=== PATIENT | female | born 1985 | race Caucasian/White ===

== ENCOUNTER 2017-04-20 12:20 | Emergency (ER) | payer OTHER ==
[~2017-04-20] VITALS: Ht 167.6 cm; Wt 75.3 kg
--- NOTE | 2017-04-20 13:45 | PD ---
HPI Chief Complaint Contraction pain Date Seen: Apr 20, 2017 Time Seen: 13:22 Travel History International Travel<30 Days: No Contact w/Intl Traveler<30Days: No Known Affected Area: No History of Present Illness HPI Patient is a 31-year-old white female at 39 weeks 6 days due tomorrow who presents complaining contractions after having had her membranes stripped in the office yesterday she has has no bleeding or leakage of fluid. She was checked in the office when her membranes were stripped she was 3 cm then. heart rate tracing is reactive and she is tesfaye at this time every 2 -3 minutes Weeks Gestation: 39 Para: 0 : 2 Miscarriage: 1 History Obstetric History Obstetric History 1 early loss Social History Alcohol Use: No Tobacco Use: No Substance Abuse: No Review of Systems General / Constitutional: No: Fever, Weight Gain, Chills, Other Eyes: No: Diploplia, Blurred Vision, Visual changes, Pain, Photophobia HENT: No: Headaches, Vertigo, Lightheadedness Cardiovascular: No: Irregular Rhythm, Chest Pain or Discomfort, Palpitations, Tachycardia, Syncope, Varicosities, Edema, Cyanosis Respiratory: No: Cough, Short of Breath, Other Gastrointestinal: Abdominal Pain, No: Nausea, Vomiting, Diarrhea Genitourinary: No: Decreased Urinary Output, Oliguria Musculoskeletal: No: Limited ROM, Weakness, Cramping, Edema, Pain Skin: No Rash, No Itching, No Dryness, No Lumps, No Change in Pigmentation, No Change in Nails, No Alopecia, No Lesions Neurologic: No: Weakness, Dizziness, Syncope, Focal Abnormalities, Coordination Problem, Headache, Slurred Speech, Seizures Psychiatric: No: Depression, Suicidal Ideations, Homicidal Ideation Endocrine: No: Heat Intolerance, Cold Intolerance, Polydipsia, Polyuria, Other Physical Exam Narrative GENERAL: Well-nourished, well-developed patient. SKIN: Warm and dry. HEAD: Normocephalic and atraumatic. EYES: No scleral icterus. No injection or drainage. ENT: No nasal drainage noted. Mucous membranes pink. Airway patent. NECK: Supple, trachea midline. No JVD. CARDIOVASCULAR: Regular rate and rhythm without murmurs, gallops, or rubs. RESPIRATORY: Breath sounds equal bilaterally. No accessory muscle use. BREASTS: Bilateral exam showed no masses , no retractions, no nipple discharge. ABDOMEN/GI: Abdomen soft, non-tender, bowel sounds present, no rebound, no guarding Gravid to [38-] weeks size Fundal Height: [38-] GENITOURINARY: External Genitalia: intact and normal in appearance BUS glands: [-] Cervix: [-post] Dilatation: [-3] Effacement: [-50] Station: [-3 Presentation: [-vtx] Membranes: [intact ] Uterine Contractions: [q 2-3 min-] FHT's: Category: [1-] Baseline: [-133] Reactive: [R-] Variability: [mod-] Decels: [none-] EXTREMITIES: No cyanosis or edema. BACK: Nontender without obvious deformity. No CVA tenderness. NEUROLOGICAL: Awake and alert. Motor and sensory grossly within normal limits. Five out of 5 muscle strength in all muscle groups. Normal speech. MDM Interpretation(s) Patient's 31-year-old white female at 39-[address] Barker care presents with contractions. The cervix is unchanged from yesterday's exam. heart rate tracings reactive, contractions are seen on the monitor. Patient is tolerating them well Plan Plan discharge home to await further contraction strength and activity, bleeding or leakage of fluid. Diagnosis Diagnosis: Primary Impression: Uterine contractions during Additional Impression: 39 weeks gestation of Disposition: 01 DISCHARGE HOME Condition: Stable Jordi Bang II, MD Apr 20, 2017 13:45
== END 2017-04-20 14:07 | disposition home or self-care (01) ==
LOC: HOBED 12:20
DX: O62.9 Abnormality of forces of labor, unspecified (principal); Z3A.39 39 weeks gestation of pregnancy
CPT/HCPCS: 59025

== ENCOUNTER 2017-04-27 06:10 | Inpatient (IN) | payer OTHER ==
[2017-04-27] VITALS (43 sets, daily range): BP systolic 107–162; BP diastolic 57–93; PULSE 57–108; RESP 18; TEMP 97.6–98.8; O2SAT 98
[~2017-04-27] VITALS: Ht 167.6 cm; Wt 78.0 kg
[2017-04-27] MEDS ORDERED: LACTATED RINGER'S 1000 ML INJ 1,000 ML IV PRN (07:24)
[2017-04-27] MEDS ORDERED: LIDOCAINE HCL 1% 50 ML VIAL I-DERMAL PRN (07:30)
[2017-04-27] MEDS ORDERED: ONDANSETRON HCL 4 MG/2 ML VIAL IV PUSH PRN ×2 (07:30→22:45)
[2017-04-27] MEDS ORDERED: SODIUM CHLORID 0.9% 500 ML INJ 500 ML IV PRN (07:30)
[2017-04-27] MEDS ORDERED: CITRIC ACID-SODIUM CITRATE LIQ 30 ML UDC PO SCH (07:30)
[2017-04-27] MEDS ORDERED: LIDOCAINE HCL 1% 50 ML VIAL INFIL PRN (07:30)
[2017-04-27] MEDS ORDERED: OXYTOCIN 30 UNITS-500ML PREMIX 500 ML IV PRN (07:30)
[2017-04-27] MEDS ORDERED: MINERAL OIL 10 ML VIAL TOPICAL PRN (07:30)
[2017-04-27] MEDS ORDERED: OXYTOCIN 30 UNITS-500ML PREMIX 500 ML IV ONE ×2 (07:30→22:45)
[2017-04-27 07:39] LABS: AUTOMATED NEUTROPHIL # 7.9 TH/MM3 (1.8-7.7); BASOPHIL # 0.1 TH/MM3 (0-0.2); BASOPHIL % 0.5 % (0.0-2.0); EOSINOPHIL # 0.1 TH/MM3 (0-0.4); EOSINOPHIL % 0.6 % (0.0-4.0); HEMATOCRIT 35.9 % (35.0-46.0); HEMOGLOBIN 12.5 GM/DL (11.6-15.3); LYMPH % 20.2 % (9.0-44.0); LYMPHOCYTE # 2.3 TH/MM3 (1.0-4.8); MEAN CELL VOLUME 91.3 FL (80.0-100.0); MEAN CORPUSCULAR HEMOGLOBIN 31.7 PG (27.0-34.0); MEAN CORPUSCULAR HGB CONC 34.7 % (32.0-36.0); MEAN PLATELET VOLUME 8.7 FL (7.0-11.0); MONO % 8.8 % (0.0-8.0); NEUT % 69.9 % (16.0-70.0); PLATELET COUNT 233 TH/MM3 (150-450); RED BLOOD COUNT 3.93 MIL/MM3 (4.00-5.30); RED CELL DISTRIBUTION WIDTH 14.7 % (11.6-17.2); WHITE BLOOD COUNT 11.4 TH/MM3 (4.0-11.0)
[2017-04-27] MEDS ORDERED: SODIUM CHLOR 0.9% 1000 ML INJ 1,000 ML IV PRN (07:44)
[2017-04-27 07:52] LABS: BACTERIA, URINE OCC /hpf; BILIRUBIN, URINE NEG (NEG); BLOOD, URINE NEG (NEG); GLUCOSE,URINE NEG (NEG); KETONE, URINE NEG (NEG); MUCUS URINE FEW /lpf (OCC); NITRITE,URINE NEG (NEG); SQUAMOUS EPITHELIAL CELL URINE 9 /hpf (0-5); URINE COLOR YELLOW (YELLW/STRAW); URINE LEUKOCYTE ESTERASE MOD (NEG)
[2017-04-27] MEDS: LACTATED RINGER'S 1000 ML INJ 1,000 ML IV SCH ×3 (08:05→19:17)
--- NOTE | 2017-04-27 08:06 | MH ---
cc: Jimmy Barker MD DATE OF ADMISSION: 04/27/2017 HISTORY OF PRESENT ILLNESS: The patient is a 31-year-old female, 2, para 0. Patient's estimated date of confinement is 04/21/2017. The patient is approximately 40 weeks' and 5 days' gestation. Uncomplicated course. The patient is scheduled for induction of labor at 40 and 6/7 weeks' gestation. PAST MEDICAL HISTORY: THE PATIENT IS ALLERGIC TO AMOXICILLIN, PENICILLIN, SEPTRA, AND CECLOR. She has a history of herpes simplex. She is currently on Valtrex 500 mg a day. Patient denies any other systemic or chronic disease. PAST SURGICAL HISTORY: Includes dilatation and curettage in 2015 for early missed . FAMILY HISTORY: Noncontributory. OBSTETRICAL HISTORY: The patient group B strep negative. One hour Glucola was normal. Genetic testing is normal. The patient's blood type is A positive. SOCIAL HISTORY: Previous smoker, quit prior to conception. Denies alcohol or illicit drug use. PHYSICAL EXAMINATION: GENERAL: The patient is a well-appearing female in no acute distress. VITAL SIGNS: Stable. Blood pressure is 128/88, pulse and respiratory rate are normal. heart tones are in the 140s. NECK: Shows no adenopathy or thyromegaly. Neck is supple. Full range of motion. HEENT: Pupils are equally round and reactive to light. There is no discoloration of her sclerae. LUNGS: Clear in all ramírez. CARDIOVASCULAR: Regular rate and rhythm. ABDOMEN: Gravid, full-term, 41 weeks' gestation. PELVIC: Cervix is 60% effaced, 2-3 cm, easily stretchable, -1 to -2 station, vertex intact. Cervix is soft and midposition. EXTREMITIES: Symmetrical full range of motion. There is no cyanosis, clubbing, or edema. NEUROLOGIC: Grossly intact, nonfocal. ASSESSMENT: The patient normal, healthy intrauterine gestation at 40 weeks and 6/7, for induction of labor, inducible, favorable cervix. Patient's group B strep status is negative. MD JOLLY Perla/SB , 01:27 PM , 01:47 PM
[2017-04-27] MEDS ORDERED: PROPOFOL 200 MG/20 ML AMP IV ONE (12:00)
[2017-04-27] MEDS ORDERED: ONDANSETRON HCL 4 MG/2 ML VIAL IV ONE (12:00)
[2017-04-27] MEDS ORDERED: LACTATED RINGER'S 1000 ML INJ 2,000 ML IV ONE (12:00)
[2017-04-27] MEDS ORDERED: LIDOCAINE 2%/EPINEPHrine PF 1:200,000 20ML SDV OTHER ONE (12:00)
[2017-04-27] MEDS ORDERED: OXYTOCIN 10 UNIT/ML AMP IV ONE (12:00)
[2017-04-27] MEDS ORDERED: ePHEDrine/NS 25 MG/5 ML SYRINGE ONE (13:34)
[2017-04-27] MEDS ORDERED: fentaNYL 2MCG-BUPIV 0.125% INJ 100 ML ONE (13:34)
[2017-04-27] MEDS ORDERED: NO SYSTEM NARCOTICS PRN (14:15)
[2017-04-27] MEDS ORDERED: ePHEDrine/NS 25 MG/5 ML SYRINGE IV PUSH PRN (14:15)
[2017-04-27] MEDS ORDERED: DO NOT ADMINISTER ANTICOAGULANTS PRN (14:15)
[2017-04-27] MEDS ORDERED: fentaNYL 2MCG-BUPIV 0.125% 100 ML EPIDURAL SCH (14:15)
[2017-04-27] MEDS ORDERED: ACETAMINOPHEN 325 MG TAB PO ONE (17:45)
[2017-04-27] MEDS ORDERED: MORPHINE SULFATE PF 5 MG/10 ML VIAL ONE (22:41)
[2017-04-27] MEDS ORDERED: ACETAMINOPHEN 325 MG TAB PO PRN (22:45)
[2017-04-27] MEDS ORDERED: SODIUM CHLORIDE 0.9% FLUSH 10 ML FLUSH IV FLUSH PRN (22:45)
[2017-04-27] MEDS ORDERED: KETOROLAC TROMETHAMINE 60 MG/2 ML (IM) VIAL IM PRN (22:45)
[2017-04-27] MEDS ORDERED: SODIUM CHLORIDE 0.9% FLUSH 10 ML FLUSH IV FLUSH SCH (22:45)
[2017-04-27] MEDS ORDERED: CLINDAMYCIN PHOS 600 MG/4 ML VIAL ONE (22:51)
[2017-04-27] MEDS ORDERED: CLINDAMYCIN INJ 600 MG in SODIUM CHLORIDE 0.9% INJ 100 ML IV SCH (23:00)
--- NOTE | 2017-04-27 23:47 | PD.OB.DELI ---
Procedure Note Section Procedure Performed by Jimmy Barker Procedure: Primary Low Transverse Sec Indication for delivery: Nonreassuring heart tracing, malposition Informed consent obtained: For anesthesia, For procedure Confirmed correct: Patient, Procedure, Site, Time-out taken Anesthesia: Epidural Medication prior to procedure: As documented in eMAR Monitoring during procedure: Blood pressure monitoring, telemetry monitor, doppler, Pulse oximetry Urinary catheter: Inserted using sterile technique, To dependent drainage Sterile preparation: Duraprep, In usual fashion Position: Supine with wedge to right side, Supine with safety belt applied Operative Features Skin Incision: Pfannenstiel Uterine Incision: Low transverse w/knife / scissors Membranes Ruptured: Previously Presentation: Occiput posterior Delivery date: Apr 27, 2017 Delivery time: 23:09 Infant: Female One Minute : 2 Five Minute : 9 Weight: 7/14 Status of : Viable (ABG cord gas pH=7.29) Medications: Antibiotics, Oxytocin Estimated blood loss: 650cc Procedure tolerated: Well Maternal Condition: Stable Condition: Stable Jimmy Barker MD Apr 27, 2017 23:47
[2017-04-28] VITALS (9 sets, daily range): BP systolic 115–141; BP diastolic 56–97; PULSE 72–92; RESP 16–18; TEMP 97.8–99.5; O2SAT 97–99
[2017-04-28] MEDS ORDERED: EPIDURAL-DIPHENHYDRAMINE HCL 50 MG/ML VIAL IV PUSH PRN (00:15)
[2017-04-28] MEDS ORDERED: EPIDURAL-DIPHENHYDRAMINE HCL 50 MG CAP PO PRN (00:15)
[2017-04-28] MEDS ORDERED: EPIDURAL-DO NOT ADMINISTER ANTICOAGULANTS PRN (00:15)
[2017-04-28] MEDS ORDERED: EPIDURAL-NALOXONE HCL 0.4 MG/ML AMP IV PUSH PRN (00:15)
[2017-04-28] MEDS ORDERED: EPIDURAL-NO SYSTEMIC NARCOTICS PRN (00:15)
[2017-04-28] MEDS ORDERED: LACTATED RINGER'S 1000 ML INJ 1,000 ML IV SCH (03:31)
[2017-04-28] MEDS: CLINDAMYCIN INJ 600 MG in SODIUM CHLORIDE 0.9% INJ 100 ML IV SCH ×2 (03:49→11:07)
[2017-04-28 06:03] LABS: AUTOMATED NEUTROPHIL # 13.3 TH/MM3 (1.8-7.7); BASOPHIL % 0.1 % (0.0-2.0); HEMATOCRIT 29.2 % (35.0-46.0); LYMPH % 6.6 % (9.0-44.0); MEAN CELL VOLUME 91.9 FL (80.0-100.0); MEAN CORPUSCULAR HEMOGLOBIN 31.6 PG (27.0-34.0); MEAN CORPUSCULAR HGB CONC 34.4 % (32.0-36.0); MEAN PLATELET VOLUME 8.8 FL (7.0-11.0); MONO % 7.1 % (0.0-8.0); MONOCYTE # 1.1 TH/MM3 (0-0.9); NEUT % 86.2 % (16.0-70.0); PLATELET COUNT 186 TH/MM3 (150-450); RED BLOOD COUNT 3.17 MIL/MM3 (4.00-5.30); RED CELL DISTRIBUTION WIDTH 14.5 % (11.6-17.2); WHITE BLOOD COUNT 15.5 TH/MM3 (4.0-11.0)
[2017-04-28] MEDS ORDERED: OXYTOCIN 30 UNITS-500ML PREMIX 500 ML IV PRN (08:45)
--- NOTE | 2017-04-28 09:05 | HHI.OB ---
Subjective Post Operative Day: 1 Objective Vitals/I&O Vital Signs Date Time Temp Pulse Resp B/P (MAP) Pulse Ox O2 Delivery O2 Flow Rate FiO2 04/28/17 01:35 97.8 82 17 141/97 (112) 04/28/17 00:54 79 16 133/68 (89) 04/28/17 00:54 99 04/28/17 00:43 97 04/28/17 00:43 84 16 132/73 (92) 04/28/17 00:27 124/70 (88) 04/28/17 00:27 91 18 98 04/28/17 00:20 90 17 128/65 (86) 99 04/28/17 00:05 98 04/28/17 00:05 98.5 04/28/17 00:05 92 18 115/56 (75) 04/27/17 23:50 98.5 89 18 111/57 (75) 98 04/27/17 22:27 91 134/87 (103) 04/27/17 20:45 98.1 04/27/17 19:45 18 04/27/17 19:30 75 131/84 (100) 04/27/17 19:08 108 162/75 (104) 04/27/17 19:00 98.4 18 04/27/17 17:33 18 04/27/17 17:33 74 124/73 (90) 04/27/17 17:33 97.7 04/27/17 16:10 97.8 90 18 108/74 (85) 04/27/17 15:30 72 115/66 (82) 04/27/17 15:25 77 04/27/17 15:20 95 04/27/17 15:15 76 04/27/17 15:10 89 04/27/17 15:05 89 04/27/17 15:05 98 119/73 (88) 04/27/17 15:00 71 04/27/17 15:00 107/77 (87) 04/27/17 15:00 85 04/27/17 14:55 79 125/81 (96) 04/27/17 14:55 86 04/27/17 14:50 77 04/27/17 14:50 66 115/76 (89) 04/27/17 14:45 81 119/74 (89) 04/27/17 14:45 62 04/27/17 14:40 69 04/27/17 14:40 76 123/75 (91) 04/27/17 14:35 96 125/80 (95) 04/27/17 14:35 66 04/27/17 14:30 71 118/72 (87) 04/27/17 14:30 72 04/27/17 14:25 80 04/27/17 14:25 121/80 (94) 04/27/17 14:25 65 04/27/17 14:20 129/77 (94) 04/27/17 14:20 71 04/27/17 14:20 70 04/27/17 14:15 73 04/27/17 14:15 71 124/73 (90) 04/27/17 14:10 72 04/27/17 14:10 69 129/86 (100) 04/27/17 14:05 68 129/77 (94) 04/27/17 14:05 68 04/27/17 14:04 97.6 18 04/27/17 14:00 65 130/81 (97) 04/27/17 14:00 64 04/27/17 13:55 89 149/84 (105) 04/27/17 13:55 75 04/27/17 13:53 81 126/92 (103) 04/27/17 13:52 90 129/66 (87) 04/27/17 13:50 73 04/27/17 13:48 67 137/93 (108) 04/27/17 12:56 62 117/81 (93) 04/27/17 12:56 98.2 18 04/27/17 11:33 61 133/79 (97) 04/27/17 10:51 63 124/82 (96) 04/27/17 10:50 98.8 18 04/27/17 10:03 68 131/75 (93) 04/27/17 09:27 62 18 121/85 (97) 04/27/17 09:26 97.8 Result Diagram: 04/28/17 0517 Objective Remarks GENERAL: Well-nourished, well-developed patient. CARDIOVASCULAR: Regular rate and rhythm without murmurs, gallops, or rubs. RESPIRATORY: Breath sounds equal bilaterally. No accessory muscle use. ABDOMEN/GI: Abdomen soft, non-tender, bowel sounds present. Incision: dressing Clean, dry and intact. Fundus: Firm, non-tender at umbilicus. GENITOURINARY: Light to moderate bleeding. EXTREMITIES: No cyanosis or edema, non-tender, without signs of DVT. Medications and IVs Current Medications Medications (Trade) Dose Ordered Sig/Christiano Route Start Time Stop Time Status Last Admin Lactated Ringer's 1,000 ml @ 100 mls/hr Q10H IV 04/28/17 03:31 04/28/17 23:30 Oxytocin 500 ml @ 100 mls/hr UNSCH X1 PRN IV 04/28/17 08:45 04/29/17 08:44 (NS Flush) 2 ml BID IV FLUSH 04/27/17 22:45 (NS Flush) 2 ml UNSCH PRN IV FLUSH 04/27/17 22:45 (Mylicon Chew) 80 mg QID PRN PO 04/27/17 22:45 (Tylenol) 650 mg Q6H PRN PO 04/27/17 22:45 (Motrin) 600 mg Q6H PRN PO 04/27/17 22:45 (Toradol Inj) 30 mg Q6H PRN IM 04/27/17 22:45 04/28/17 22:44 04/28/17 03:53 (Percocet 5-325 Mg) 1 tab Q4H PRN PO 04/27/17 22:45 (Percocet 5-325 Mg) 2 tab Q4H PRN PO 04/27/17 22:45 (Janet-Colace) 2 tab Q12H PRN PO 04/27/17 22:45 (M-M-R Ii Inj) 0.5 ml ONCE ONCE SQ 04/28/17 16:00 04/28/17 16:01 (Boostrix Inj) 0.5 ml ONCE ONCE IM 04/28/17 16:00 04/28/17 16:01 (Zofran Inj) 4 mg Q6H PRN IV PUSH 04/27/17 22:45 Miscellaneous Information NO SYSTEMIC NARCOTICS TO BE GIVEN FO... UNSCH PRN .XX 04/28/17 00:15 04/29/17 00:14 (Narcan Inj) 0.4 mg UNSCH PRN IV PUSH 04/28/17 00:15 04/29/17 00:14 (Benadryl Inj) 25 mg Q6H PRN IV PUSH 04/28/17 00:15 04/29/17 00:14 (Benadryl) 50 mg Q6H PRN PO 04/28/17 00:15 04/29/17 00:14 Miscellaneous Information ALL NURSING DEPARTMENTS UNSCH PRN .XX 04/28/17 00:15 04/29/17 00:14 Clindamycin Phosphate 600 mg/ Sodium Chloride 104 ml @ 208 mls/hr Q6H IV 04/28/17 04:00 04/28/17 10:29 04/28/17 03:49 Assessment/Plan Problem List: (1) delivery delivered ICD Codes: O82 - Encounter for delivery without indication Assessment and Plan POD 1 emergent CD cont routine postop care dispo- home on pod 2-3 Lisa Aj MD Apr 28, 2017 09:05
[2017-04-28] MEDS: IBUPROFEN 600 MG TAB PO PRN ×2 (11:16→18:51)
--- NOTE | 2017-04-28 12:17 | MP ---
cc: Jimmy Barker MD DATE OF OPERATION: 04/27/2017 PREOPERATIVE DIAGNOSIS: Postdates intrauterine with malposition, persistent occiput posterior, nonreassuring heart rate tracing. PROCEDURE PERFORMED: Primary low transverse section delivery of viable female infant. POSTOPERATIVE DIAGNOSIS: Postdates intrauterine with malposition, persistent occiput posterior, nonreassuring heart rate tracing. SURGEON: Jimmy Barker MD ANESTHESIA: Epidural with reinforcement. ESTIMATED BLOOD LOSS: 650 mL DRAINS: Whitaker to gravity. OPERATIVE FINDINGS: Female delivered from ROP position. Nuchal cord x 1, which was loose. Clear fluid noted. The Apgars were 2 at 1 minute, 9 at 5. Cord blood gas obtained on room air, pH was 7.29. Baby weighed 7 pounds 14 ounces. INDICATIONS FOR PROCEDURE: The patient was brought in for induction, progressed slowly. The patient proceeded to reach the second stage of labor, had difficult issues with maternal pushing and heart rate tracing had episodes of decreased variability and was a category 2. After an attempt at repositioning the patient, the patient became exhausted. heart rate tracing was stable, but given the circumstances with patient's maternal exhaustion, recommendation was to proceed with operative delivery by section. The patient received clindamycin 600 mg IV due to PENICILLIN ALLERGY prior. DESCRIPTION OF PROCEDURE: She was taken to the operating room in stable condition. heart rate tracing again was category 1-2 and she underwent reinforcement of her epidural, which was working fine. She was prepped and draped. A Whitaker had been previously placed under sterile technique and she had sequentials placed on lower extremities for VTE prophylaxis. Timeout was conducted, agreed by all present in the room. After she was adequately prepped and draped, the Pfannenstiel incision was utilized using a #10 blade, making a slight elliptical incision above the pubic symphysis down through the subcutaneous fat to the level of the fascia. The fascia was identified, cleaned, then scored laterally, dissecting it sharply away from the rectus muscle, cauterizing any active bleeding along the way. The rectus muscle in the midline. Peritoneum was identified and opened sharply. Bladder blade was placed over the pubic symphysis. Bladder flap was developed easily and then a transverse incision was made in the lower uterine segment. Infant vertex was delivered. Nuchal cord was easily identified and reduced without complication. The infant was delivered in toto and the cord was doubly clamped and cut. The infant was taken to [facility] by the nursery staff present. Cord segment was obtained for cord blood gas assessment and then a cord sample was obtained for typing. Placenta was removed intact, with trailing membranes. Uterus was explored. No retained tissue was noted. Uterus was closed with a double layer using 0 Monocryl, first as a running locking suture, followed by a second imbricating suture. Good result was noted. Integrity of the incision was checked. Irrigation of the pelvis demonstrated no active bleeding or hematoma. The adnexa and the uterus were normal. Uterus was tesfaye and firm. Full count _was____ correct. The peritoneum was then closed with a running suture of 2-0 Monocryl. Muscle belly was reapproximated loosely with interrupted mattress suture of 2-0 Monocryl. The fascia was closed with 0 Vicryl in a simple running fashion. The subcutaneous space was irrigated, dried. Any active bleeding was cauterized and the space was reapproximated with a running suture of 2-0 Monocryl. [place] were used to close the skin. A dressing was applied. The final counts were correct. The patient was stable, the was doing well in the recovery room with the father. At the end of the case, the patient was stable. MD JOLLY Perla/PAULA , 11:51 PM , 12:24 AM EUGENIO
[2017-04-28] MEDS: oxyCODONE/ACETAMINOPHEN 5 MG/325 MG TAB PO PRN ×3 (13:44→23:48)
[2017-04-28] MEDS ORDERED: MEASLES, MUMPS, RUBELLA VACCINE 0.5 ML VIAL SQ ONE (16:00)
[2017-04-28] MEDS ORDERED: DIPHTH/TETANUS/ACEL PERTUSSIS (BOOSTER) 0.5 ML VIAL/PFS IM ONE (16:00)
[2017-04-28] MEDS: DOCUSATE SODIUM 50 MG/SENNA 8.6 MG TAB PO PRN (18:50)
[2017-04-29] MEDS: IBUPROFEN 600 MG TAB PO PRN ×4 (01:15→19:22)
[2017-04-29] MEDS: oxyCODONE/ACETAMINOPHEN 5 MG/325 MG TAB PO PRN ×7 (01:15→23:36)
[2017-04-29 07:00] VITALS: RESP 20
[2017-04-29 08:30] VITALS: BP 129/87; PULSE 68; RESP 18; TEMP 97.8; O2SAT 97
--- NOTE | 2017-04-29 11:19 | HHI.OB ---
Subjective Post Operative Day: 2 Remarks Doing well nursing Objective Vitals/I&O Vital Signs Date Time Temp Pulse Resp B/P (MAP) Pulse Ox O2 Delivery O2 Flow Rate FiO2 04/29/17 08:30 68 18 129/87 (101) 97 04/29/17 08:30 97.8 04/29/17 07:00 20 04/28/17 20:51 98.1 72 18 136/80 (98) 04/28/17 14:00 72 134/79 (97) 04/28/17 14:00 98.1 18 Result Diagram: 04/28/17 0517 Objective Remarks GENERAL: Well-nourished, well-developed patient. CARDIOVASCULAR: Regular rate and rhythm without murmurs, gallops, or rubs. RESPIRATORY: Breath sounds equal bilaterally. No accessory muscle use. ABDOMEN/GI: Abdomen soft, non-tender, bowel sounds present. Incision: dressing Clean, dry and intact. Fundus: Firm, non-tender at umbilicus. GENITOURINARY: Light to moderate bleeding. EXTREMITIES: No cyanosis or edema, non-tender, without signs of DVT. Medications and IVs Current Medications Medications (Trade) Dose Ordered Sig/Christiano Route Start Time Stop Time Status Last Admin (NS Flush) 2 ml BID IV FLUSH 04/27/17 22:45 04/28/17 09:48 (NS Flush) 2 ml UNSCH PRN IV FLUSH 04/27/17 22:45 (Mylicon Chew) 80 mg QID PRN PO 04/27/17 22:45 (Tylenol) 650 mg Q6H PRN PO 04/27/17 22:45 (Motrin) 600 mg Q6H PRN PO 04/27/17 22:45 04/29/17 06:59 (Percocet 5-325 Mg) 1 tab Q4H PRN PO 04/27/17 22:45 04/28/17 23:48 (Percocet 5-325 Mg) 2 tab Q4H PRN PO 04/27/17 22:45 04/29/17 10:54 (Janet-Colace) 2 tab Q12H PRN PO 04/27/17 22:45 04/28/17 18:50 (Zofran Inj) 4 mg Q6H PRN IV PUSH 04/27/17 22:45 Assessment/Plan Problem List: (1) delivery delivered ICD Codes: O82 - Encounter for delivery without indication Assessment and Plan POD 1 emergent CD cont routine postop care dispo- home on pod 2-3 POD 2 Mom and baby doing well home today po iron RTO 1 week Leona Stallings MD Apr 29, 2017 11:19
[2017-04-29] MEDS: DOCUSATE SODIUM 50 MG/SENNA 8.6 MG TAB PO PRN (13:58)
[2017-04-29 20:00] VITALS: BP 131/86; PULSE 86; RESP 18; TEMP 98.4; O2SAT 95
[2017-04-29] MEDS: SIMETHICONE 80 MG CHEWABLE TAB PO PRN (20:05)
[2017-04-30] MEDS: IBUPROFEN 600 MG TAB PO PRN ×2 (01:54→08:07)
[2017-04-30] MEDS: oxyCODONE/ACETAMINOPHEN 5 MG/325 MG TAB PO PRN ×3 (04:08→12:24)
[2017-04-30 07:00] VITALS: BP 126/77; PULSE 62; RESP 16; TEMP 98; O2SAT 97
--- NOTE | 2017-04-30 07:37 | HHI.OB ---
Subjective Post Operative Day: 3 Remarks c/o incisional pain nursing well Objective Vitals/I&O Vital Signs Date Time Temp Pulse Resp B/P (MAP) Pulse Ox O2 Delivery O2 Flow Rate FiO2 04/30/17 07:00 98.0 62 16 126/77 (93) 97 04/29/17 20:00 98.4 86 18 131/86 (101) 95 04/29/17 08:30 68 18 129/87 (101) 97 04/29/17 08:30 97.8 Result Diagram: 04/28/17 0517 Objective Remarks GENERAL: Well-nourished, well-developed patient. CARDIOVASCULAR: Regular rate and rhythm without murmurs, gallops, or rubs. RESPIRATORY: Breath sounds equal bilaterally. No accessory muscle use. ABDOMEN/GI: Abdomen soft, non-tender, bowel sounds present. Incision: dressing Clean, dry and intact. Fundus: Firm, non-tender at umbilicus. GENITOURINARY: Light to moderate bleeding. EXTREMITIES: No cyanosis or edema, non-tender, without signs of DVT. Medications and IVs Current Medications Medications (Trade) Dose Ordered Sig/Christiano Route Start Time Stop Time Status Last Admin (NS Flush) 2 ml BID IV FLUSH 04/27/17 22:45 04/28/17 09:48 (NS Flush) 2 ml UNSCH PRN IV FLUSH 04/27/17 22:45 (Mylicon Chew) 80 mg QID PRN PO 04/27/17 22:45 04/29/17 20:05 (Tylenol) 650 mg Q6H PRN PO 04/27/17 22:45 (Motrin) 600 mg Q6H PRN PO 04/27/17 22:45 04/30/17 01:54 (Percocet 5-325 Mg) 1 tab Q4H PRN PO 04/27/17 22:45 04/29/17 16:15 (Percocet 5-325 Mg) 2 tab Q4H PRN PO 04/27/17 22:45 04/30/17 04:08 (Janet-Colace) 2 tab Q12H PRN PO 04/27/17 22:45 04/29/17 13:58 (Zofran Inj) 4 mg Q6H PRN IV PUSH 04/27/17 22:45 Assessment/Plan Problem List: (1) delivery delivered ICD Codes: O82 - Encounter for delivery without indication Assessment and Plan POD 1 emergent CD cont routine postop care dispo- home on pod 2-3 POD 2 Mom and baby doing well home today po iron RTO 1 week POD 3 remove stables and steri strip home today RTO 1 week Leona Stallings MD Apr 30, 2017 07:37
[2017-04-30] MEDS ORDERED: OXYC1TAB63 PO (07:38)
--- NOTE | 2017-04-30 07:38 | HHI.DCPOC ---
Discharge Care Plan Report Symptoms to Your Doctor -Temperature above 100.5 degrees -Redness, of incision or excessive or foul smelling drainage -Unusual pain or calf pain -Increased vaginal bleeding -Painful or difficulty urinating -Feelings of extreme sadness or anxiety after 2 weeks Goals to Promote Your Health * To prevent worsening of your condition and complications * To maintain your health at the optimal level Directions to Meet Your Goals Take your medications as prescribed Follow your dietary instruction Follow activity as directed Ensure plenty of rest for recovery Drink fluids for hydration Keep your appointments as scheduled Take your immunizations and boosters as scheduled If your symptoms worsen call your PCP, if no PCP go to Urgent Care Center or Emergency Room Smoking is Dangerous to Your Health. Avoid second hand smoke Call the 24-hour crisis hotline for domestic abuse at Leona Stallings MD Apr 30, 2017 07:38
[2017-04-30] MEDS: SIMETHICONE 80 MG CHEWABLE TAB PO PRN (08:07)
[2017-04-30] MEDS: DOCUSATE SODIUM 50 MG/SENNA 8.6 MG TAB PO PRN (12:23)
== END 2017-04-30 14:55 | disposition home or self-care (01) | DRG 766 ==
LOC: H2EA 06:10 → H1EA 04-28 01:12
PROVIDERS: ADMIT Obstetrics & Gynecology; ATTEND Obstetrics & Gynecology
PROC: 10D00Z1 Extraction of Products of Conception, Low, Open Approach (ICD-10-PCS; principal; 2017-04-27)
PROC: 3E033VJ Introduction of Other Hormone into Peripheral Vein, Percutaneous Approach (ICD-10-PCS; 2017-04-27)
PROC: 00HU33Z Insertion of Infusion Device into Spinal Canal, Percutaneous Approach (ICD-10-PCS; 2017-04-27)
PROC: 3E0R3BZ Introduction of Anesthetic Agent into Spinal Canal, Percutaneous Approach (ICD-10-PCS; 2017-04-27)
PROC: 4A1HXCZ Monitoring of Products of Conception, Cardiac Rate, External Approach (ICD-10-PCS; 2017-04-27)
DX: O48.0 Post-term pregnancy (principal); O32.9XX0 Maternal care for malpresentation of fetus, unspecified, not applicable or unspecified; O75.81 Maternal exhaustion complicating labor and delivery; O76 Abnormality in fetal heart rate and rhythm complicating labor and delivery; Z88.0 Allergy status to penicillin; O69.81X0 Labor and delivery complicated by cord around neck, without compression, not applicable or unspecified; Z37.0 Single live birth; Z3A.40 40 weeks gestation of pregnancy; Z87.891 Personal history of nicotine dependence
CPT/HCPCS: 59025; 80307; 81001; 82805; 85025; 86900; 86901; G0481; J1885; J2274; J2405; J2590; J3010; J7120; Q0163